=== PATIENT | male | born 1955 | race Caucasian/White ===

== ENCOUNTER 2016-11-10 13:14 | Emergency (ER) | payer OTHER, BC ==
--- NOTE | 2016-11-10 13:45 | ER Document Report ---
ED Medical Screen (RME) - General Chief Complaint: Numbness Stated Complaint: NUMBNESS OF RIGHT SIDE Time seen by provider: 13:41 Mode of Arrival: Ambulatory Information source: Patient Notes: 61 yo male c/o numbness like it is asleep right cheek and 1/2 of upper and lower right lip, whole right arm from mid bicep to all fingers (shaking it relieves it only some), and same numbness to top of right leg from thigh to ankle only. 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 Face onset 2 pm then intermittent from 4pm -6pm. Constant since last night. Arm constant since midnight when trying to sleep, woke up with it tingly, propped it up on pillow. Leg onset since midnight too. PMH: CABG 2011. Also c/o sinus congestion that is chronic. No headache, chest pain, SOB, fever, or neck pain,. TRAVEL OUTSIDE OF THE [place] IN LAST 30 DAYS: No - Related Data Allergies/Adverse Reactions: amoxicillin [Amoxicillin] Allergy (Intermediate, Verified 01/09/11 15:09) tachycardia & rash Past Medical History - Past Medical History Cardiac Medical History: Reports: Hx Hypercholesterolemia, Hx Hypertension Pulmonary Medical History: Denies: Hx Tuberculosis Neurological Medical History: GI Medical History: Musculoskeltal Medical History: Infectious Medical History: Past Surgical History: Reports: Hx Cholecystectomy - 01/18. Denies: Hx Pacemaker - Immunizations Hx Diphtheria, Pertussis, Tetanus Vaccination: Yes Physical Exam - Vital signs Vitals: Temp Pulse Resp BP Pulse Ox 97.2 F 60 16 108/68 93 11/10/16 13:38 11/10/16 13:38 11/10/16 13:38 11/10/16 13:38 11/10/16 13:38 Course - Vital Signs Vital signs: Temp Pulse Resp BP Pulse Ox 97.2 F 60 16 108/68 93 11/10/16 13:38 11/10/16 13:38 11/10/16 13:38 11/10/16 13:38 11/10/16 13:38
[2016-11-10 14:45] LABS: ALANINE AMINOTRANSFERASE 28 U/L (21-72); ALBUMIN 4.2 g/dL (3.5-5.0); ALKALINE PHOSPHATASE 99 U/L (38-126); ANION GAP 13 (5-19); ASPARTATE AMINO TRANSFERASE 23 U/L (17-59); BILIRUBIN,TOTAL 0.7 mg/dL (0.2-1.3); BLOOD UREA NITROGEN 23 mg/dL (7-20); CALCIUM 9.7 mg/dL (8.4-10.2); CARBON DIOXIDE 22 mmol/L (22-30); CHLORIDE 105 mmol/L (98-107); CREATINE KINASE 114 U/L (55-170); CREATININE RESULT 1.08 mg/dL (0.52-1.25); GLUCOSE 109 mg/dL (75-110); POTASSIUM 4.7 mmol/L (3.6-5.0); SODIUM 140.1 mmol/L (137-145); TOTAL PROTEIN 7.3 g/dL (6.3-8.2)
[2016-11-10 14:54] LABS: ABSOLUTE BASOPHILS # (AUTO) 0.1 10^3/uL (0.0-0.2); ABSOLUTE EOSINOPHILS # (AUTO) 0.2 10^3/uL (0.0-0.6); ABSOLUTE LYMPHOCYTES (AUTO) 1.6 10^3/uL (0.5-4.7); ABSOLUTE MONOCYTES (AUTO) 0.7 10^3/uL (0.1-1.4); ABSOLUTE NEUT (AUTO) 5.6 10^3/uL (1.7-8.2); BASOPHILS % (AUTO) 0.8 % (0-2); EOSINOPHILS % (AUTO) 2.8 % (0-6); HEMATOCRIT 51.6 % (37.9-51.0); HEMOGLOBIN 17.3 g/dL (13.5-17.0); HGB HCT DIFFERENCE 0.3; LYMPHOCYTES % (AUTO) 19.7 % (13-45); MEAN CORPUSCULAR HEMOGLOBIN 30.3 pg (27.0-33.4); MEAN CORPUSCULAR HGB CONC 33.6 g/dL (32.0-36.0); MEAN CORPUSCULAR VOLUME 90 fl (80-97); RED BLOOD COUNT 5.72 10^6/uL (4.35-5.55); RED CELL DISTRIBUTION WIDTH 13.4 % (11.5-14.0); SEGMENTED NEUTROPHILS % (AUTO) 68.7 % (42-78); WHITE BLOOD COUNT 8.1 10^3/uL (4.0-10.5)
[2016-11-10 14:57] LABS: CREATINE KINASE MB 1.66 ng/mL (<4.55); TROPONIN I 0.016 ng/mL
--- NOTE | 2016-11-10 15:08 | EKG REPORT ---
SEVERITY:- ABNORMAL ECG - SINUS RHYTHM PROBABLE LEFT ATRIAL ABNORMALITY REPOL ABNRM SUGGESTS ISCHEMIA, LATERAL LEADS : Confirmed by: Chauncey Tellez MD 10-Nov-2016 15:08:23
[2016-11-10 15:10] LABS: PARTIAL THROMBOPLASTIN TIME 30.5 SEC (23.5-35.8)
--- NOTE | 2016-11-10 16:00 | ER Document Report ---
ED General - General Chief Complaint: Numbness Stated Complaint: NUMBNESS OF RIGHT SIDE Time seen by provider: 15:53 Mode of Arrival: Ambulatory Notes: This is a 61-year-old male with a history of hypertension hyperlipidemia and double coronary artery bypass that presents today with right-sided numbness. 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 He states that the numbness lasted a few minutes and went away. He denies any facial droop, slurring of speech, changes in vision. At 1430 the patient right-sided facial numbness return and throughout the day intermittently came and went away. However at midnight, patient was in bed and woke and noticed that his right arm, right face, and right leg started to feel numb. He states that he had normal sensation and had normal range of motion of all extremities. He denies chest pain shortness of breath associated diaphoresis. He describes the numbness as "if someone injected Novocain into my face." . TRAVEL OUTSIDE OF THE [place] IN LAST 30 DAYS: No - Related Data Allergies/Adverse Reactions: amoxicillin [Amoxicillin] Allergy (Intermediate, Verified 01/09/11 15:09) tachycardia & rash Past Medical History - General Information source: Patient - Social History Smoking Status: Former Smoker Family History: Reviewed & Not Pertinent - Past Medical History Cardiac Medical History: Reports: Hx Hypercholesterolemia, Hx Hypertension Pulmonary Medical History: Denies: Hx Tuberculosis Neurological Medical History: GI Medical History: Musculoskeltal Medical History: Infectious Medical History: Past Surgical History: Reports: Hx Cholecystectomy - 01/18. Denies: Hx Pacemaker - Immunizations Hx Diphtheria, Pertussis, Tetanus Vaccination: Yes Review of Systems - Review of Systems Constitutional: denies: Chills, Fever, Weakness EENT: Nose congestion, Sinus pressure Cardiovascular: denies: Chest pain, Palpitations, Heart racing Respiratory: denies: Cough Gastrointestinal: denies: Diarrhea, Nausea Genitourinary: denies: Burning, Dysuria Neurological/Psychological: Numbness - Numbness to right arm and leg.. denies: Confusion, Gait changes, Loss of power Physical Exam - Vital signs Vitals: Temp Pulse Resp BP Pulse Ox 97.2 F 60 16 108/68 93 11/10/16 13:38 11/10/16 13:38 11/10/16 13:38 11/10/16 13:38 11/10/16 13:38 - General General appearance: Appears well - HEENT Head: Normocephalic Eyes: Normal Conjunctiva: Normal - Respiratory Respiratory status: No respiratory distress. No: Tachypnea Breath sounds: Normal. No: Rales, Rhonchi, Stridor, Wheezing - Cardiovascular Rhythm: Regular Heart sounds: Normal auscultation - Abdominal Inspection: Normal Tenderness: Nontender - Back Back: Normal, Nontender - Extremities General upper extremity: Normal inspection, Normal ROM - Patient had normal sensation bilaterally. He stated that he felt the same sensation equally when i touched the patient. patient had normal sensation to face bilaterally. with his eyes closed, the patient could tell where i was touching his face with light palpation bilaterally., Normal strength General lower extremity: Normal inspection, Normal ROM - Normal sensation bilaterally. He stated that it feels the same on both sides while touching the patient, Normal strength Shoulder: Normal Arm: Normal - Neurological Orientation: AAOx4 Speech: Normal. No: Dysarthria Cranial nerves: Normal - CN I-XII are normal and intact.. No: Facial palsy, Forehead sparing Cerebellar coordination: Normal. 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 No: Weakness, Hemiplegia - Psychological Associated symptoms: Normal affect - Skin Skin Temperature: Warm Skin Moisture: Dry Skin Color: Normal Course - Re-evaluation Re-evalutation: 11/10/16 16:12 Patient states that his numbness has eased, and he feels better. 11/10/16 17:46 Patient is standing up at bedside pacing the room. Gait was normal. Denies all pain. States that his numbness has decreased significantly. Patient wants to go home. Patient stated that an ant stung him on the right side of the face on Nov 06. Imaging results and labs were shared with the patient. he was given multiple opportunities to ask questions. he stated that he would follow up with primary care physician. - Vital Signs Vital signs: Temp Pulse Resp BP Pulse Ox 97.4 F 61 12 158/98 H 97 11/10/16 18:12 11/10/16 18:12 11/10/16 18:12 11/10/16 18:12 11/10/16 18:12 - Laboratory Result Diagrams: 11/10/16 14:19 11/10/16 14:19 Laboratory results interpreted by me: 11/10/16 11/10/16 14:19 14:19 RBC 5.72 H Hgb 17.3 H Hct 51.6 H BUN 23 H Discharge - Discharge Clinical Impression: Numbness on right side, Nasal congestion Condition: Stable Disposition: HOME, SELF-CARE Additional Instructions: Return to the emergency department if symptoms worsen. Follow-up with primary care physician. Prescriptions: Azithromycin [Zithromax 250 mg Tablet] 500 mg PO DAILY #6 tab Referrals: BIBI ARRIAZA MD [Primary Care Provider] - Follow up as needed
[2016-11-10 19:18] VITALS: BP 158/98
== END 2016-11-10 18:12 | disposition home or self-care (01) ==
LOC: ER 13:14
DX: R20.0 Anesthesia of skin (principal); R09.81 Nasal congestion; I10 Essential (primary) hypertension; Z95.1 Presence of aortocoronary bypass graft; Z88.0 Allergy status to penicillin; Z87.891 Personal history of nicotine dependence
CPT/HCPCS: 36415; 70450; 71010; 80053; 82550; 82553; 84484; 85025; 85610; 85730; 93005; 93010; 99284

== ENCOUNTER 2017-01-17 06:46 | Day surgery (SDC) | payer BC, OTHER ==
[2017-01-17] MEDS ORDERED: MIDAZOLAM 2 MG/2 ML INJ ONE (07:00)
[2017-01-17] MEDS ORDERED: PROPOFOL INJ 200 MG/20 ML VIAL IV ONE (07:01)
[2017-01-17] MEDS ORDERED: DEXAMETHASONE SOD PHOS INJ 10 MG/1 ML VIAL ONE (07:01)
[2017-01-17] MEDS ORDERED: ONDANSETRON HCL INJ/PF 4 MG/2 ML SDV ONE (07:01)
[2017-01-17] MEDS ORDERED: FENTANYL CITRATE INJ/PF 250 MCG/5 ML AMPULE ONE (07:01)
[2017-01-17] MEDS ORDERED: SUCCINYLCHOLINE CHLORIDE INJ 200 MG/10 ML VIAL ONE (07:01)
[2017-01-17] MEDS ORDERED: LIDOCAINE 2% INJ-PF (20 MG/ML) 10 ML AMPUL ONE (07:02)
[2017-01-17] MEDS ORDERED: OXYMETAZOLINE HCL 0.05% NASAL SPRAY 15 ML BOTTLE ONE (07:06)
[2017-01-17] MEDS ORDERED: GLYCOPYRROLATE INJ 0.4 MG/2 ML VIAL ONE (07:08)
[2017-01-17] MEDS ORDERED: LIDOCAINE 1%/EPINEPHRINE INJ 20 ML VIAL ONE (07:31)
== END 2017-01-17 07:50 | disposition home or self-care (01) ==
LOC: SC 06:46
PROVIDERS: ATTEND Otolaryngology
DX: J33.9 Nasal polyp, unspecified (principal); J32.0 Chronic maxillary sinusitis; J30.9 Allergic rhinitis, unspecified
CPT/HCPCS: J2250; J3010; J3490 ×3; J2405; J1100; J0330; J2704

== ENCOUNTER 2017-04-22 07:57 | Day surgery (SDC) | payer BC ==
[2017-04-22] MEDS ORDERED: NORMAL SALINE INJ/PF 0.9% 10 ML SDV ONE (08:29)
[2017-04-22] MEDS ORDERED: MIDAZOLAM 2 MG/2 ML INJ ONE (08:31)
[2017-04-22] MEDS ORDERED: FENTANYL CITRATE INJ/PF 100 MCG/2 ML AMPUL ONE ×2 (08:31)
[2017-04-22] MEDS ORDERED: NEOSTIGMINE METHYLSULFATE 10 MG/10 ML VIAL ONE (08:31)
[2017-04-22] MEDS ORDERED: DEXAMETHASONE SOD PHOSPHATE INJ 4 MG/1 ML VIAL ONE (08:31)
[2017-04-22] MEDS ORDERED: ONDANSETRON HCL INJ/PF 4 MG/2 ML SDV ONE (08:32)
[2017-04-22] MEDS ORDERED: PROPOFOL INJ 200 MG/20 ML VIAL IV ONE (08:32)
[2017-04-22] MEDS ORDERED: ROCURONIUM BROMIDE INJ 50 MG/5 ML VIAL IV ONE (08:32)
[2017-04-22] MEDS ORDERED: GLYCOPYRROLATE INJ 0.4 MG/2 ML VIAL ONE (08:32)
== END 2017-04-22 08:42 | disposition home or self-care (01) ==
LOC: SC 07:57
PROVIDERS: ATTEND Otolaryngology
DX: J33.9 Nasal polyp, unspecified (principal)
CPT/HCPCS: J1100; J2250; J2405; J2704; J3010; J3490